=== PATIENT | female | born 1990 | race Two or more races ===

== ENCOUNTER 2024-10-08 16:51 | Emergency (ER) | payer MEDICAID, SELFPAY ==
[2024-10-08 17:08] VITALS: BP 115/76; PULSE 114; RESP 20; TEMP 38.3; O2SAT 92; BMI 35.9
--- NOTE | 2024-10-08 17:14 | XR_ITS ---
Examination: PA lateral chest 2 views TECHNIQUE: Upright PA and lateral chest 2 views Exam date and time: October 08, 2024 at 1731 hours INDICATIONS: Coughing beginning 3 days ago FINDINGS: Normal heart size Atelectasis versus early pneumonia left base The osseous structures are intact IMPRESSION: Atelectasis versus early pneumonia left base, clinical correlation advised
--- NOTE | 2024-10-08 17:16 | EDRME_ITS ---
Rapid Medical Screening Exam FORMERLY [facility], [facility] Arrival date/time: 10/08/24 16:51 34-year-old female presents emergency department today with complaints of cough, congestion, runny nose and fever patient tested positive for strep and influenza in the clinic Chief Complaint: Shortness of Breath/Dyspnea Vital signs: Vital Signs Temperature 100.9 F H 10/08/24 17:08 Pulse Rate 114 H 10/08/24 17:08 Respiratory Rate 20 10/08/24 17:08 Blood Pressure 115/76 10/08/24 17:08 Pulse Oximetry (%) 92 L 10/08/24 17:08 Oxygen Delivery Method Room Air 10/08/24 17:08
[2024-10-08 17:31] LABS: Lactate (Lactic Acid) 1.1 mMol/L (0.4-2.0)
[2024-10-08 17:32] LABS: Basophils % (Auto) 0 % (0-2.5); Eosinophils % (Auto) 0 % (0-10); Hematocrit 40.7 % (36.0-46.0); Hemoglobin 14.2 g/dL (12.0-16.0); Immature Granulocytes % (Auto) 1 % (0-0); Immature Granulocytes Auto 0.08 Thou/mm3 (0.00-0.00); Lymphocytes # (Auto) 0.7 Thou/mm3 (1.0-4.8); Lymphocytes % (Auto) 10 % (10-50); Mean Corpuscular HGB Conc 34.9 g/dl (31.0-37.0); Mean Corpuscular Hemoglobin 28.3 pg (25.0-35.0); Mean Corpuscular Volume 81 fL (80-100); Monocytes # (Auto) 0.5 Thou/mm3 (0.0-0.8); Monocytes % (Auto) 8 % (0-12); Neutrophils # (Auto) 5.5 Thou/mm3 (1.8-7.7); Neutrophils % (Auto) 80 % (37-80); Nucleated Red Blood Cell % 0 /100 WBC (0); Platelet Count 219 Thou/mm3 (140-440); RDW Standard Deviation 40.1 fL (36.4-46.3); Red Blood Count 5.02 Miln/mm3 (4.00-5.20); White Blood Count 6.8 Thou/mm3 (3.6-11.0)
[2024-10-08 17:42] VITALS: PULSE 115
[2024-10-08] MEDS: ALBUTEROL RT 2.5 MG/0.5 ML NEBU 10 MG INH (17:42)
[2024-10-08] MEDS: SODIUM CHLORIDE RT SOL 0.9% 3 ML NEBU INH (17:43)
[2024-10-08] MEDS: IPRATROPIUM RT 0.5 MG/ 2.5 ML NEBU 1 MG INH (17:43)
--- NOTE | 2024-10-08 17:47 | EDNOTE_ITS ---
ED General RME/HPI General Chief complaint: Shortness of Breath/Dyspnea Stated complaint: SOB X 1 DAY, FEVER, COUGH Time Seen by Provider: 10/08/24 17:38 Arrival date/time: 10/08/24 16:51 CC: Difficulty breathing HPI ongoing for the past 24 hours. Discharged from the clinic today with a diagnosis of influenza and strep throat. Patient initial assessment oxygen saturation is 90% on room air and tachypneic. Currently patient is tachycardic with oxygen saturations at 92% patient states she has a history of asthma. Patient is awake alert oriented nontoxic-appearing not in any acute distress. RME / HPI RME / HPI narrative: 10/08/24 16:51 34-year-old female presents emergency department today with complaints of cough, congestion, runny nose and fever patient tested positive for strep and influenza in the clinic Related Data Previous Rx's ?Medication ?Instructions ?Recorded amoxicillin 875 mg-potassium 1 tab PO BID #14 tabs clavulanate 125 mg tablet prednisone 20 mg tablet See Taper PO BID 3 days #6 t abs 10/08/24 Allergies Allergy/AdvReac Type Severity Reaction Status Date / Time No Known Allergies Allergy Verified 10/08/24 16:57 Review of Systems Review of Systems Narrative Review of Systems: GEN: No fever, no chills, no weight loss EYES: No discharge, no visual changes, no pain HEENT: No ear pain, no congestion, no sore throat PULM: + shortness of breath, + cough, no congestion CV: No chest pain, no dyspnea on exertion, no palpitations GI: No nausea, no vomiting, no diarrhea, no pain, no constipation : No frequency, no urgency, no dysuria MUSC/SKEL: No joint pain, no back pain SKIN: No rash PSYCH: No hallucinations, no depression HEME/LYMPH: No easy bleeding or bruising tendencies NEURO: No weakness, no headache Past Medical History Social History SMOKING STATUS: Never smoker ED Exam Narrative Physical exam: [General: Obese not in any acute distress Head normocephalic HEENT: Within acceptable limits Neck is supple nontender Chest equal chest rise nontender to palpation Respiratory: Tachypneic, clear to auscultation no wheezes crackles or rubs CV: Rate rhythm is regular tachycardic, no murmurs rubs or clicks Abdomen is distended secondary to body habitus soft nontender no masses positive bowel sounds all 4 quadrants Back: No CVA tenderness no spinous process tenderness from cervical spine thoracic and lumbar spine Skin: Intact no petechiae rash induration ulceration or crepitus Extremities: Moving all extremity against resistance cap refill less than 2 seconds neurosensory intact Neuro: Awake alert oriented x3 Glascow coma 15 no focal deficits] Course Course Course Narrative: Reassessment of this patient at 2800, the patient is awake alert oxygen saturation 92% with a heart rate of 130 this is probably secondary to an hour- long SVN. Patient states he is received no medications from the prior clinic even though she was diagnosed with strep pharyngitis reportedly tested positive.. Will discharge the patient home with steroids and antibiotics. Quality Measures none Orders Category Date Time Status Bedside COVID-19 Antigen Test NOW Care 10/08/24 17:14 Active Bedside Influenza A&B Antigen Test NOW Care 10/08/24 17:14 Completed XR chest 2V Stat Exams 10/08/24 17:14 Completed Blood Culture (Lab) Stat Lab 10/08/24 17:20 Received CBC Stat Lab 10/08/24 17:29 Completed Comprehensive Metabolic Panel Stat Lab 10/08/24 17:29 Completed HCG,Qualitative Serum Stat Lab 10/08/24 17:29 Completed Lactate (Lactic Acid) Stat Lab 10/08/24 17:29 Completed Procalcitonin Stat Lab 10/08/24 17:29 Completed ALBUTEROL RT 0.5ml [Proventil Rt 0.5ml] Med 10/08/24 17:15 Discontinued 10 mg INH X1 ONE Ipratropium Nutrioso Rt Dolores [Atrovent Rt Dolores] Med 10/08/24 17:15 Discontinued 1 mg INH X1 ONE Sodium Chloride Rt Dolores 0.9% [NS Rt Dolores 0.9%] Med 10/08/24 17:15 Active 3 ml INH PRN PRN dexAMETHasone TAB [Decadron Tab] Med 10/08/24 18:00 Discontinued 10 mg PO X1 ONE Vital Signs Vital signs: Vital Signs Temperature 100.9 F H 10/08/24 17:08 Pulse Rate 114 H 10/08/24 17:08 Respiratory Rate 20 10/08/24 17:08 Blood Pressure 115/76 10/08/24 17:08 Pulse Oximetry (%) 92 L 10/08/24 17:08 Oxygen Delivery Method Room Air 10/08/24 17:08 MDM Patient data External records reviewed:: [facility] previous records Clinical information provided by:: patient Social determinants that could affect healthcare access:: none Patient has the following chronic illnesses:: None How is presenting disease/condition affected by chronic disease/condition?: u neffected by Evaluation data The following diagnostics were reviewed and interpreted by me:: lab results, radiology exam(s) and EKG tracing(s) Lab and/or radiology exams considered but not ordered:: Patient is influenza A a positive CBC shows no acute leukocytosis anemia thrombocytopenia CMP shows no significant lecture imbalances renal impairment transaminitis or T. bili elevation Chest x-ray shows possible early pneumonia however the patient is afebrile nontoxic-appearing not in any acute distress Procalcitonin is negative Lactic acid is negative Interpretation Summary: Fevers most likely attributed influenza A and strep. Patient has been treated by the other clinic from which she was referred patient be discharged home if there is worsening of symptoms she can return the emergency room medially for further evaluation. Medications Medications considered but not ordered:: None Medication administrations:: Medication Administration History Sodium Chloride (Sodium Chloride Rt Dolores 0.9% 3 Ml Nebu) 3 ml INH PRN PRN PRN Reason: SOLN Stop: 11/07/24 17:14 Last Admin: 10/08/24 17:43 Dose: 3 ml Documented By: EV Discontinued Medications Albuterol (Albuterol Rt 2.5 Mg/0.5 Ml Nebu) 10 mg INH X1 ONE Stop: 10/08/24 17:16 Last Admin: 10/08/24 17:42 Dose: 10 mg Documented By: EV Dexamethasone (Dexamethasone 4 Mg Tablet) 10 mg PO X1 ONE Stop: 10/08/24 18:01 Last Admin: 10/08/24 18:14 Dose: 10 mg Documented By: RONAL Ipratropium Nutrioso (Ipratropium Rt 0.5 Mg/ 2.5 Ml Nebu) 1 mg INH X1 ONE Stop: 10/08/24 17:16 Last Admin: 10/08/24 17:43 Dose: 1 mg Documented By: EV None Consultations Consultation(s) initiated? (list below): No Diagnosis Differential Diagnosis ED Complaint MDM: Influenza pneumonia strep Most likely diagnosis given after review of the tests above:: Influenza A strep Admission Indicated Admission indicated?: not indicated Explain why admission is indicated or not indicated:: Stable for outpatient follow-up Admission Request Was there a request for admission?: No Disposition Plan Disposition Plan: Discharge Discharge Attestation Discharge Attestation: The patient and all family members were given an opportunity to ask questions and understood the discharge instructions. Discharge instructions specifically effects, indications for sooner follow up or return to the emergency department, and the expected course of current diagnosis. Patient condition: Stable Medical Decision Making Differential Diagnosis Differential Diagnosis: Influenza pneumonia strep Lab Data 10/08/24 17:29 10/08/24 17:29 Labs: Lab Results 10/08/24 Range/Units 17:29 WBC 6.8 (3.6-11.0) Thou/mm3 RBC 5.02 (4.00-5.20) Miln/mm3 Hgb 14.2 (12.0-16.0) g/dL Hct 40.7 (36.0-46.0) % MCV 81 (80-100) fL MCH 28.3 (25.0-35.0) pg MCHC 34.9 (31.0-37.0) g/dl RDW Std Deviation 40.1 (36.4-46.3) fL Plt Count 219 (140-440) Thou/mm3 Neut % (Auto) 80 (37-80) % Lymph % (Auto) 10 (10-50) % Harmon % (Auto) 8 (0-12) % Eos % (Auto) 0 (0-10) % Baso % (Auto) 0 (0-2.5) % Neut # (Auto) 5.5 (1.8-7.7) Thou/mm3 Lymph # (Auto) 0.7 L (1.0-4.8) Thou/mm3 Harmon # (Auto) 0.5 (0.0-0.8) Thou/mm3 Eos # (Auto) 0.0 (0.0-0.5) Thou/mm3 Baso # (Auto) 0.0 (0.0-0.2) Thou/mm3 Immature Gran # (Auto) 0.08 H (0.00-0.00) Thou/mm3 Absolute Nucleated RBC 0.00 (0.00-0.00) Thou/mm3 Immature Gran % 1 H (0-0) % Nucleated RBC % 0 (0) /100 WBC Sodium 135 L (136-145) mMol/L Potassium 3.4 (3.4-5.1) mMol/L Chloride 106 (98-107) mMol/L Carbon Dioxide 21.0 (20.0-31.0) mMol/L Anion Gap 8 (7-16) BUN 7 L (9-23) mg/dL Creatinine 0.8 (0.6-1.3) mg/dL Estim Creat Clear Calc 90.2 (>60) mL/min eGFR > 60 (60 - ) See Note BUN/Creatinine Ratio 9 L (12-20) Ratio Glucose 134 H (74-106) mg/dL Calculated Osmolality 270 L (275-295) Lactic Acid 1.1 (0.4-2.0) mMol/L Calcium 9.1 (8.3-10.6) mg/dL Corrected Calcium 9.1 (8.5-10.1) mg/dL Total Bilirubin 0.5 (0.3-1.2) mg/dL AST 34 (0-34) U/L ALT 62 H (10-49) U/L Alkaline Phosphatase 84 (46-116) U/L Total Protein 8.0 (5.7-8.2) gm/dL Albumin 4.5 (3.5-5.0) gm/dL Globulin 3.5 (2.3-3.5) gm/dL Albumin/Globulin Ratio 1.3 (1.2-2.2) Procalcitonin 0.09 (0.0-0.49) ng/ml HCG, Qual Negative Discharge Plan Plan Patient Disposition: HOME (Self Care) Patient condition on transfer: Stable Prescriptions/Referrals Prescriptions/Med Rec: New amoxicillin-pot clavulanate 875-125 mg tablet 1 tab PO BID Qty: 14 0RF prednisone 20 mg tablet See Taper PO BID 3 Days Qty: 6 0RF Taper: Prednisone Taper 20 mg DAILY for 2 Days and 0 Hour 10 mg DAILY for 2 Days and 0 Hour 5 mg DAILY for 7 Days and 0 Hour Referrals: Stevan White MD [Physician] - In 1 week No Primary/Family,Physician [Primary Care Provider] - In 1 week Problem List Clinical Impression: Influenza A, Pharyngitis Patient/Caregiver Discharge Instructions Education Materials: Self-Care for Sore Throats, ED Influenza (Adult) Print Language: [place] Islander Stand Alone Forms: Griselda Award Info., Patient Portal Info Letter, Work/School Release PA/[employer] Supervising Physician PA/[employer] Supervising Physician: Alfredito Espinal ENP
[2024-10-08 17:50] VITALS: PULSE 105; RESP 22; O2SAT 91
--- NOTE | 2024-10-08 17:58 | PC.NURSE ---
Patient came into the ED with c/o respiratory distress, states when she coughs she becomes short of breath. When she coughs scant white phlegm is produce and cough is consistant. Symptoms arose yesterday she took some tessalon perals for the cough but continued to feel short of breath. Currently patient's oxygen is 97% on RA, no labored breathing and has albuterol treatment going which she states helps her breath easier.
[2024-10-08 18:00] LABS: Alanine Aminotransferase 62 U/L (10-49); Albumin, Serum 4.5 gm/dL (3.5-5.0); Albumin/Globulin Ratio 1.3 (1.2-2.2); Alkaline Phosphatase 84 U/L (46-116); Anion Gap 8 (7-16); Aspartate Amino Transferase 34 U/L (0-34); BUN/Creatinine Ratio 9 Ratio (12-20); Bilirubin,Total 0.5 mg/dL (0.3-1.2); Blood Urea Nitrogen 7 mg/dL (9-23); Calcium 9.1 mg/dL (8.3-10.6); Calcium (Corrected) 9.1 mg/dL (8.5-10.1); Chloride 106 mMol/L (98-107); Creatinine (Component) 0.8 mg/dL (0.6-1.3); Estimated Creatinine Clearance 90.2 mL/min (>60); Globulin 3.5 gm/dL (2.3-3.5); Glucose 134 mg/dL (74-106); HCG,Qualitative Serum Negative; Osmolality,Calculated 270 (275-295); Potassium 3.4 mMol/L (3.4-5.1); Procalcitonin 0.09 ng/ml (0.0-0.49); Sodium 135 mMol/L (136-145); eGFR > 60 See Note
[2024-10-08] MEDS: dexAMETHasone 4 MG TABLET 10 MG PO (18:14)
[2024-10-08 18:53] VITALS: PULSE 137; RESP 24; RESP 89; O2SAT 93
[2024-10-08 19:10] VITALS: BP 113/80; PULSE 138; RESP 22; TEMP 37.3; O2SAT 94
--- NOTE | 2024-10-08 20:05 | PC.NURSE ---
Alfredito in room talking to pt with regards to results and plan of care. Translated by Analilia MEJIA, all questions answered by OBSTETRICS/GYNECOLOGY NURSE.
[2024-10-08 20:19] VITALS: BP 134/86; PULSE 124; RESP 18; TEMP 37.1; O2SAT 90
== END 2024-10-08 20:24 | disposition home or self-care (01) ==
PROVIDERS: Nurse Practitioner Primary Care; Emergency Provider Emergency Medicine
DX: J10.1 Influenza due to other identified influenza virus with other respiratory manifestations (principal)
CPT/HCPCS: 36415; 71046; 80053; 83605; 84145; 84703; 85025; 87040; 87400; 87811; 94644; 99283; J8540

== ENCOUNTER 2024-11-23 12:41 | Emergency (ER) | payer MEDICAID, SELFPAY ==
[2024-11-23 12:42] VITALS: BMI 35.6
[2024-11-23 12:57] VITALS: BP 129/81; PULSE 72; RESP 18; TEMP 37.4; O2SAT 98
--- NOTE | 2024-11-23 13:00 | XR_ITS ---
Examination: Lumbar spine 3 views Technique one AP lateral coned lateral lower lumbar spine 3 views Date and time: 02/23/2025 1435 hours INDICATIONS: Patient fell off a ladder today with injury to the lower back, lower back pain. FINDINGS: Grade 1 spondylolisthesis L5 on S1 Moderate disc narrowing L5-S1 No acute lumbar fracture IMPRESSION: No acute lumbar fracture
--- NOTE | 2024-11-23 13:00 | XR_ITS ---
Examination: Tibia-Fibula, left , 2 views Technique: Tibia-fibula AP lateral 2 views Date and time of exam: November 23, 2024 1426 hours INDICATIONS: Patient fell off a ladder today with injury to the lower leg, lower leg pain. FINDINGS: No acute fracture No dislocation No foreign body IMPRESSION: No acute fracture
--- NOTE | 2024-11-23 13:01 | PD.EDBACK ---
ED Back Injury Pain RME/HPI General Chief Complaint: Back Pain/Injury Stated Complaint: LOWER BACK AND LEG PAIN X3DAYS S/P FALL OFF LADDER Time Seen by Provider: 11/23/24 12:48 Source: patient Arrival date/time: 11/23/24 12:41 34-year-old female with no known medical history presents to the emergency room with a chief complaint of lower back pain and left calf pain after a fall from a ladder 2 days ago Mode of arrival: ambulatory Limitations: no limitations Related Data Previous Rx's ?Medication ?Instructions ?Recorded amoxicillin 875 mg-potassium 1 tab PO BID #14 tabs 10/08/24 clavulanate 125 mg tablet Allergies Allergy/AdvReac Type Severity Reaction Status Date / Time No Known Allergies Allergy Verified 11/23/24 12:45 Review of Systems Review of Systems Systems Reviewed: All systems reviewed, normal except as documented Constitutional Constitutional: Reports system reviewed and no additional complaints, except as documented, Denies fatigue, Denies fever(s), Denies headache(s) and Denies weakness Eyes Eyes: Reports system reviewed and no additional complaints, except as documented, Denies blurry vision and Denies change in vision ENT Ears, Nose, Mouth, and Throat: Reports system reviewed and no additional complaints, except as documented, Denies otalgia, Denies headache(s), Denies nasal congestion, Denies throat swelling and Denies vertigo Cardiovascular Cardiovascular: Reports system reviewed and no additional complaints, except as documented, Denies chest pain, Denies dyspnea and Denies dyspnea on exertion Respiratory Respiratory: Reports system reviewed and no additional complaints, except as documented, Denies chest congestion, Denies cough, Denies dyspnea, Denies dyspnea on exertion and Denies wheezing Gastrointestinal Gastrointestinal: Reports system reviewed and no additional complaints, except as documented, Denies abdominal pain, Denies cramping, Denies nausea and Denies vomiting Genitourinary Genitourinary: Reports system reviewed and no additional complaints, except as documented Musculoskeletal Musculoskeletal: Reports system reviewed and no additional complaints, except as documented, Reports arthralgias, Denies back pain, Reports joint swelling and Reports limited range of motion Integumentary/Breasts Skin/Breast: Reports system reviewed and no additional complaints, except as documented and Denies wounds Neurologic Neurologic: Reports system reviewed and no additional complaints, except as documented, Denies confusion, Denies headache(s), Denies lack of coordination, Denies vertigo and Denies weakness Psychiatric Psychiatric: Reports system reviewed and no additional complaints, except as documented, Denies anxiety, Denies confusion, Denies depression, Denies paranoia, Denies suicidal ideation and Denies tactile hallucinations Endocrine Endocrine: Reports system reviewed and no additional complaints, except as documented and Denies fatigue Hematologic/Lymphatic Hematologic/Lymphatic: Reports system reviewed and no additional complaints, except as documented and Denies lymphadenopathy Allergic/Immunologic Allergic/Immunologic: Reports system reviewed and no additional complaints, except as documented, Denies throat swelling, Denies urticaria and Denies wheezing Past Medical History Past Medical History CARDIAC: Negative Congestive Heart Failure RESPIRATORY: Positive Asthma; Negative Chronic Obstructive Pulmonary Disease (COPD) GENITOURINARY: Negative Renal Disease ENDOCRINE: Negative Diabetes Mellitus Type 1 or Diabetes Mellitus Type 2 Surgical History SURGICAL: Positive Section Social History SMOKING STATUS: Never smoker ED Exam General Limitations: Present no limitations General appearance: Present alert and in no apparent distress Head Head exam: Present atraumatic Eye Eye exam: Present normal appearance, PERRL and EOMI ENT ENT exam: Present normal exam, normal oropharynx and mucous membranes moist Neck Neck exam: Present normal inspection, full ROM and trachea midline Chest Chest inspection: Present normal inspection and symmetric chest wall rise Respiratory Respiratory exam: Present normal lung sounds bilaterally Cardiovascular Cardiovascular exam: Present regular rate, normal rhythm and normal heart sounds Abdominal Exam Abdominal exam: Present soft and normal bowel sounds Extremities Exam Extremities exam: Present normal inspection and full ROM Expanded Lower Extremity Exam Hip/Pelvis exam: Present normal inspection Upper leg exam: Present normal inspection Knee exam: Present normal inspection Lower leg exam: Present full ROM and tenderness; Absent swelling or Homans' sign Foot/toe exam: Present normal inspection Gait: observed and normal Back Exam Back exam: Present normal inspection, full ROM, tenderness and vertebral tenderness Neurological Exam Neurological exam: Present alert, oriented X3 and CN II-XII intact Psychiatric Psychiatric exam: Present normal affect and normal mood Skin Skin exam: Present warm, dry, intact and normal color Course Quality Measures none Orders Category Date Time Status XR lumbar spine 2-3V Stat Exams 11/23/24 13:00 Completed XR tibia fibula LT 2V Stat Exams 11/23/24 13:00 Completed Ketorolac Inj [Toradol Inj] Med 11/23/24 13:01 Discontinued 30 mg IM X1 ONE Vital Signs Vital signs: Vital Signs Temperature 99.3 F 11/23/24 12:57 Pulse Rate 72 11/23/24 12:57 Respiratory Rate 18 11/23/24 12:57 Blood Pressure 129/81 11/23/24 12:57 Pulse Oximetry (%) 98 11/23/24 12:57 Oxygen Delivery Method Room Air 11/23/24 12:57 O2 saturation 98% within normal limits Back Pain / Injury MDM Narrative MDM Narrative:: 34-year-old female with no known medical history presents to the emergency room with a chief complaint of lower back pain and left calf pain after a fall from a ladder 2 days ago Patient is hemodynamically stable and in no apparent distress Physical examination shows tenderness and pain with palpation of the lumbar area of her spine as well as pain and tenderness to the left calf area. Patient denies any other tenderness anywhere else patient states this incident occurred 2 days ago and she went to get a massage which made things worse. X-ray of the lumbar spine was negative for any acute findings X-ray of the left tib-fib was negative for any acute fractures or dislocation Patient was discharged and educated to follow-up with primary care provider in the next 24 to 48 hours and return to the emergency room for any evidence of worsening signs or symptoms Patient data External records reviewed:: [facility] previous records Clinical information provided by:: patient Social determinants that could affect healthcare access:: none Patient has the following chronic illnesses:: No chronic illness How is presenting disease/condition affected by chronic disease/condition?: no chronic disease Evaluation data The following diagnostics were reviewed and interpreted by me:: lab results and radiology exam(s) Lab and/or radiology exams considered but not ordered:: Labs and radiology exams considered and ordered Interpretation Summary: Left hip x-ray-no acute fracture or dislocation Left lumbar spine x-ray-no acute findings Medications / Prescriptions Medications or Prescriptions considered but not ordered:: Medication given Medication administrations:: Medication Administration History Discontinued Medications Ketorolac Tromethamine (Ketorolac Inj 60 Mg/2 Ml Vial) 30 mg IM X1 ONE Stop: 11/23/24 13:02 Medication given Consultations Consultation(s) initiated? (list below): No Diagnosis Differential diagnosis back pain/injury: strain of lumbar region, thoracic back pain and discitis Most likely diagnosis given after review of the tests above:: Strain of lumbar region Admission Indicated Admission indicated?: not indicated Admission Request Was there a request for admission?: No Disposition Plan Disposition Plan: Discharge Discharge Attestation Discharge Attestation: The patient and all family members were given an opportunity to ask questions and understood the discharge instructions. Discharge instructions specifically effects, indications for sooner follow up or return to the emergency department, and the expected course of current diagnosis. Patient condition: Stable Discharge Plan Plan Patient Disposition: HOME (Self Care) Discharge Disposition comment: Stable Prescriptions/Referrals Prescriptions/Med Rec: No Action amoxicillin-pot clavulanate 875-125 mg tablet 1 tab PO BID Qty: 14 0RF Referrals: Stevan White MD [Primary Care Provider] - In 1 week Problem List Clinical Impression: Strain of lumbar region Patient/Caregiver Discharge Instructions Education Materials: ED Back Sprain/Strain Additional Instructions: Por favor, consulte con marcelino m?dico de cabecera en las pr?ximas 24 a 48 horas. Radiograf?a de columna lumbar negativa para cualquier fractura o luxaci?n aguda. Si observa cualquier signo de empeoramiento de los signos o s?ntomas, acuda a urgencias de inmediato. Print Language: Welsh Stand Alone Forms: Griselda Award Info., Work/School Release, Patient Portal Info Letter SERG/SU Supervising Physician SERG/SU Supervising Physician: Dr. Mcwilliams
[2024-11-23] MEDS: KETOROLAC INJ 60 MG/2 ML VIAL 30 MG IM (14:55)
== END 2024-11-23 15:05 | disposition home or self-care (01) ==
PROVIDERS: Emergency Provider Emergency Medicine; PCP Family Medicine
DX: S39.012A Strain of muscle, fascia and tendon of lower back, initial encounter (principal); W11.XXXA Fall on and from ladder, initial encounter; M79.662 Pain in left lower leg
CPT/HCPCS: 72100; 73590; 96372; 99283; J1885